=== PATIENT | male | born 1960 | race Caucasian/White ===

== ENCOUNTER 2018-03-24 20:48 | Emergency (ER) | payer OTHER, MEDICARE ==
[2018-03-24] MEDS ORDERED: LORAZEPAM 1 MG TABLET PO ONE (21:43)
[2018-03-24] MEDS ORDERED: LIDOCAINE 2% VISCOUS SOLN 20 ML UDCUP PO ONE (21:53)
[2018-03-24] MEDS ORDERED: METOCLOPRAMIDE HCL ORAL SOLN 10 MG/10 ML UDCUP PO ONE (21:53)
[2018-03-24] MEDS ORDERED: MAG HYDROX/AL HYDROX/SIMETH SUSP 30 ML UDCUP PO ONE (21:53)
--- NOTE | 2018-03-24 21:59 | ER Document Report ---
ED General - General Chief Complaint: Chest Pain Stated Complaint: CHEST PRESSURE Time Seen by Provider: 03/24/18 21:41 TRAVEL OUTSIDE OF THE [place].S. IN LAST 30 DAYS: No - HPI Notes: Patient is a 57-year-old male with a history of hypertension, AUSTYN, type 2 diabetes, chronic GI issues, acid reflux, and anxiety who presents to the ED complaining of feeling some chest tightness and burning 6 hours. Patient states that his symptoms started [place] Patient states that he has felt a little anxious as well today. He was told that he may have congestive heart failure in the past, but another doctor told that he did not have it. He has otherwise been eating and drinking without any difficulties. He has been urinating normally. Patient states that he did have a few episodes of diarrhea today without any hematochezia or melena. Denies any significant cardiopulmonary medical history otherwise. Denies any smoking or IV drug use. Denies any prolonged immobilization, leg pains, previous DVT/PE, recent surgery/trauma, hormone use. Denies any headache, fever, neck pain, URI, sore throat, palpitations, syncope , cough, shortness of breath, wheeze, dyspnea, abdominal pain, nausea/vomiting, urinary retention, dysuria, hematuria, loss of control of bowel or bladder, numbness/tingling, saddle anesthesia, muscle paralysis/weakness, or rash. - Related Data Allergies/Adverse Reactions: Penicillins Allergy (Mild, Verified 05/18/16 09:28) Hives Past Medical History - Social History Smoking Status: Never Smoker Chew tobacco use (# tins/day): No Frequency of alcohol use: Occasional Drug Abuse: None Family History: CAD - Father with CABG in his 70s, Malignancy Patient has suicidal ideation: No Patient has homicidal ideation: No - Past Medical History Cardiac Medical History: Reports: Hx Congestive Heart Failure, Hx Coronary Artery Disease - high chol , Hx Hypercholesterolemia, Hx Hypertension Denies: Hx Heart Attack Pulmonary Medical History: Reports: Hx Asthma Denies: Hx Bronchitis, Hx COPD, Hx Pneumonia Neurological Medical History: Denies: Hx Cerebrovascular Accident, Hx Seizures Endocrine Medical History: Reports: Hx Diabetes Mellitus Type 2 Renal/ Medical History: Reports: Hx Kidney Stones. Denies: Hx Peritoneal Dialysis GI Medical History: Reports: Hx Gastroesophageal Reflux Disease Musculoskeltal Medical History: Reports Hx Arthritis Psychiatric Medical History: Reports: Hx Depression Past Surgical History: Reports: Hx Tonsillectomy - Immunizations Hx Diphtheria, Pertussis, Tetanus Vaccination: - unknown Hx Pneumococcal Vaccination: 10/30/14 Review of Systems - Review of Systems -: Yes All other systems reviewed and negative Physical Exam - Vital signs Vitals: Temp Pulse BP Pulse Ox 98.6 F 56 L 118/72 94 03/24/18 21:17 03/24/18 21:17 03/24/18 21:17 03/24/18 21:17 - Notes Notes: PHYSICAL EXAMINATION: GENERAL: Well-appearing, well-nourished and in no acute distress. A&ox4. Answers questions appropriately. HEAD: Atraumatic, normocephalic. EYES: Pupils equal round and reactive to light, extraocular movements intact, sclera anicteric, conjunctiva are normal. ENT: nares patent and without discharge. oropharynx clear without exudates. No tonsilar hypertrophy or erythema. Moist mucous membranes. Chest: non-tender. no flail chest. NECK: Normal range of motion, supple without lymphadenopathy LUNGS: Breath sounds clear to auscultation bilaterally and equal. No wheezes rales or rhonchi. HEART: Regular rate and rhythm without murmurs, rubs, gallops. ABDOMEN: Soft, nontender, nondistended abdomen. No guarding, no rebound. No masses appreciated. Normal bowel sounds present. No CVA tenderness bilaterally. Musculoskeletal: FROM to passive/active. Strength 5+/5. Mily neg b/l. Extremities: No cyanosis, clubbing, or edema b/l. Peripheral pulses 2+. Capillary refill less than 3 seconds. NEUROLOGICAL: Normal speech, normal gait. Normal sensory, motor exams PSYCH: anxious mood, normal affect. SKIN: Warm, Dry, normal turgor, no rashes or lesions noted. Course - Re-evaluation Re-evalutation: 03/25/18 01:55 Patient is an afebrile, well-hydrated, 57-year-old male who presents to the ED with now resolved chest pain, suspect relation with his acid reflux and anxiety. Vitals are acceptable. PE is otherwise unremarkable. Patient has no significant tachycardia, tachypnea, or hypoxia. He is nontoxic-appearing. Patient was given a GI cocktail as well as ativan which completely resolved his symptoms. Patient states that he is feeling great. He is tolerating p.o. without any difficulties. CBC, CMP, BNP, cardiac enzymes 2/EKG, chest x-ray were unremarkable for any acute pathology. No other labs or imaging warranted at this time based on H&P. Patient is a heart score of 3. Wells 0. Based on symptomatology and work up as noted above I have a low suspicion for ACS, PE, pneumothorax, pericarditis, dissection, respiratory compromise, severe dehydration, sepsis, meningitis, or other systemic emergent condition at this time. Patient is aware that his condition can change from initial presentation and he needs to monitor symptoms closely and seek medical attention for any acute changes. Recommend conservative measures for symptoms. Recheck with your PCM in 3-5 days. Return to the ED with any worsening/concerning symptoms otherwise as reviewed in discharge. Patient is in agreement. - Vital Signs Vital signs: Temp Pulse Resp BP Pulse Ox 98.6 F 56 L 127/71 H 98 03/24/18 21:17 03/24/18 21:17 03/24/18 22:29 03/24/18 22:30 - Laboratory Result Diagrams: 03/24/18 22:29 03/24/18 22:29 Laboratory results interpreted by me: 03/24/18 03/24/18 22:29 22:29 WBC 14.3 H Seg Neutrophils % 83.4 H Lymphocytes % 11.2 L Absolute Neutrophils 12.0 H BUN 21 H Discharge - Discharge Clinical Impression: Anxiousness Chest pain, unspecified Qualifiers: Chest pain type: unspecified Qualified Code(s): R07.9 - Chest pain, unspecified Condition: Stable Disposition: HOME, SELF-CARE Instructions: Chest Pain of Unclear Cause ([facility]) Additional Instructions: Maintain adequate fluid and food intake Take home medications as directed Low sodium/fat diet Exercise regularly Weight control Monitor blood pressure daily and keep a log Monitor symptoms for any acute changes Recheck with your PCM in 3-5 days Consider a follow-up with cardiology Return to the ED with any worsening symptoms and/or development of fever, headache, chest pain, palpitations, syncope, shortness of breath, trouble breathing, abdominal pain, n/v/d, blood in stool/urine, loss of control of bowel /bladder, urinary retention, muscle weakness/paralysis, numbness/tingling, or other worsening symptoms that are concerning to you. Forms: Elevated Blood Pressure Referrals: KRYSTAL HICKS MD [ACTIVE STAFF] - Follow up as needed
--- NOTE | 2018-03-24 22:13 | RADIOLOGY REPORT (SQ) ---
EXAM DESCRIPTION: CHEST SINGLE VIEW COMPLETED DATE/TIME: 03/24/2018 10:05 pm REASON FOR STUDY: chest pain COMPARISON: 08/01/2015 EXAM PARAMETERS: NUMBER OF VIEWS: One view. TECHNIQUE: Single frontal radiographic view of the chest acquired. RADIATION DOSE: NA LIMITATIONS: None. FINDINGS: LUNGS AND PLEURA: No opacities, masses or pneumothorax. No pleural effusion. MEDIASTINUM AND HILAR STRUCTURES: No masses. Contour normal. HEART AND VASCULAR STRUCTURES: Heart stable in size. Normal vasculature. BONES: No acute findings. HARDWARE: None in the chest. OTHER: No other significant finding. IMPRESSION: NO ACUTE RADIOGRAPHIC FINDING IN THE CHEST. NO SIGNIFICANT CHANGE FROM PRIOR STUDY. TECHNICAL DOCUMENTATION: JOB ID: [id number] [employer]- All Rights Reserved Reading location - IP/workstation name: [email or web address]
[2018-03-24 22:41] LABS: ABSOLUTE EOSINOPHILS # (AUTO) 0.1 10^3/uL (0.0-0.6); ABSOLUTE LYMPHOCYTES (AUTO) 1.6 10^3/uL (0.5-4.7); ABSOLUTE MONOCYTES (AUTO) 0.6 10^3/uL (0.1-1.4); BASOPHILS % (AUTO) 0.2 % (0-2); EOSINOPHILS % (AUTO) 0.8 % (0-6); HEMATOCRIT 43.2 % (37.9-51.0); HEMOGLOBIN 14.7 g/dL (13.5-17.0); LYMPHOCYTES % (AUTO) 11.2 % (13-45); MEAN CORPUSCULAR HEMOGLOBIN 30.7 pg (27.0-33.4); MEAN CORPUSCULAR VOLUME 91 fl (80-97); MONOCYTES % (AUTO) 4.4 % (3-13); PLATELET COUNT 225 10^3/uL (150-450); RED BLOOD COUNT 4.78 10^6/uL (4.35-5.55); RED CELL DISTRIBUTION WIDTH 13.5 % (11.5-14.0); SEGMENTED NEUTROPHILS % (AUTO) 83.4 % (42-78); TOTAL CELLS COUNTED % (AUTO) 100 %; WHITE BLOOD COUNT 14.3 10^3/uL (4.0-10.5)
[2018-03-24 22:57] LABS: ALANINE AMINOTRANSFERASE 37 U/L (21-72); ALBUMIN 4.7 g/dL (3.5-5.0); ALKALINE PHOSPHATASE 98 U/L (38-126); ANION GAP 13 (5-19); ASPARTATE AMINO TRANSFERASE 21 U/L (17-59); BILIRUBIN,DIRECT 0.3 mg/dL (0.0-0.4); BILIRUBIN,TOTAL 0.4 mg/dL (0.2-1.3); BLOOD UREA NITROGEN 21 mg/dL (7-20); CALCIUM 9.9 mg/dL (8.4-10.2); CARBON DIOXIDE 27 mmol/L (22-30); CHLORIDE 99 mmol/L (98-107); CREATINE KINASE 55 U/L (55-170); GLUCOSE 87 mg/dL (75-110); POTASSIUM 4.4 mmol/L (3.6-5.0); SODIUM 139.3 mmol/L (137-145); TOTAL PROTEIN 7.3 g/dL (6.3-8.2)
[2018-03-24 23:09] LABS: CREATINE KINASE MB 1.05 ng/mL (<4.55); NT PRO BNP 49 pg/mL (5-900)
[2018-03-24 23:25] LABS: TROPONIN I < 0.012 ng/mL
[2018-03-25 02:35] VITALS: BP 138/97
--- NOTE | 2018-03-26 16:22 | EKG REPORT ---
SEVERITY:- BORDERLINE ECG - SINUS RHYTHM BORDERLINE INFERIOR Q WAVES : Confirmed by: Mykel Aguilar 26-Mar-2018 16:21:27
== END 2018-03-25 02:18 | disposition home or self-care (01) ==
LOC: ER 20:48
DX: R07.9 Chest pain, unspecified (principal); F41.1 Generalized anxiety disorder; E11.9 Type 2 diabetes mellitus without complications; I50.9 Heart failure, unspecified; E78.00 Pure hypercholesterolemia, unspecified; I11.0 Hypertensive heart disease with heart failure; Z88.0 Allergy status to penicillin; Z87.442 Personal history of urinary calculi
CPT/HCPCS: 93005; 99285; 36415; 82553; 82550; 85025; 80053; 84484; 83880; 71045; 93010; J3490

== ENCOUNTER 2020-07-02 08:39 | Day surgery (SDC) | payer OTHER, MEDICARE ==
[~2020-07-02 08:39] MED LIST: PROPOFOL INJ 200 MG/20 ML VIAL IV ONE
--- NOTE | 2020-07-02 11:13 | Operative Report ---
Operative Report DATE OF SURGERY: 07/02/20 Operative Report: The risk, benefits and alternatives of the procedure including the risk of bleeding, perforation requiring surgery have been explained to the patient in detail and informed consent has been obtained. The patient is placed in a left, lateral decubital position. Timeout was called. Propofol medication is administered. A rectal examination is done which did not reveal any masses, tears or fissures. An Olympus videoscope was introduced into the patient's rectum. Scope was then carefully advanced all the way to the cecum. Cecum was identified by the usual anatomical landmarks including the ileocecal valve as well as the appendiceal office. Photodocumentation is obtained. Scope was then sequentially pulled back via the various segments of the colon including the ascending colon, hepatic flexure, transverse colon, splenic flexure, descending colon and finally into the rectosigmoid portions of the colon. Retroflexion maneuvers performed. The risks benefits and alternatives of the procedure explained to the patient in detail and informed consent is obtained.A GIF Olympus video scope was inserted into the patient's mouth and hypopharynx, the esophagus is identified intubated and insufflated ,the scope was then advanced through the esophagus stomach and duodenum, retroflexion maneuver is done, the esophagus stomach and first and second portions of the duodenum examined PREOPERATIVE DIAGNOSIS: Epigastric pain rule out peptic ulcer disease. Change of bowel habits POSTOPERATIVE DIAGNOSIS: Diverticulosis noted in the sigmoid area without any evidence of diverticulitis. Colon polyp noted on the right-hand side of the colon status post removal with biopsy forceps. Gastritis status post biopsy. Duodenitis with small duodenal ulcers explaining the patient's abdominal pain OPERATION: Colonoscopy with biopsy. EGD with biopsy SURGEON: SINAI GONZALEZ ANESTHESIA: LMAC TISSUE REMOVED OR ALTERED: As noted above. COMPLICATIONS: None. ESTIMATED BLOOD LOSS: None. INTRAOPERATIVE FINDINGS: As noted above. PROCEDURE: Patient tolerated the procedure well. No immediate postprocedure complications are noted. Patient is discharged in good condition. Discharge date 07/02/2020. Discharge diet: Regular. Discharge activity: Regular. 2 to 3-week follow-up to discuss findings. Patient is instructed to call the office or proceed to the emergency room should there be any further problems or questions. Wait on the pathology. Surveillance colonoscopy in 5 years
[2020-07-02 14:10] VITALS: BP 126/76
== END 2020-07-02 11:45 | disposition home or self-care (01) ==
LOC: END 08:39
PROVIDERS: ATTEND Internal Medicine Gastroenterology
DX: D12.6 Benign neoplasm of colon, unspecified (principal); K57.30 Diverticulosis of large intestine without perforation or abscess without bleeding; K29.50 Unspecified chronic gastritis without bleeding; K29.80 Duodenitis without bleeding; I10 Essential (primary) hypertension; E11.9 Type 2 diabetes mellitus without complications; G47.33 Obstructive sleep apnea (adult) (pediatric); E66.9 Obesity, unspecified; Z79.899 Other long term (current) drug therapy; Z79.84 Long term (current) use of oral hypoglycemic drugs; Z03.818 Encounter for observation for suspected exposure to other biological agents ruled out
CPT/HCPCS: 43239; 45380; 82962; 87635; 88305 ×2; 00813; J2704; C9803; 813

== ENCOUNTER 2020-09-20 16:27 | Inpatient (IN) | payer OTHER, MEDICARE ==
--- NOTE | 2020-09-20 16:39 | ER Document Report ---
ED Medical Screen (RME) - General Chief Complaint: Chest Pain Stated Complaint: CHEST PAIN Time Seen by Provider: 09/20/20 16:32 Mode of Arrival: Wheelchair Information source: Patient Notes: 59-year-old male presented to ED for chest pain shortness of breath difficulty taking a deep breath states is hard for him to talk but he talked nonstop from the time out into the triage room till he was still talking when he left. He states he went to the pain clinic this morning at 11:00 they told him his blood pressure was 70 over something that he needed to go right to the emergency room. He states they then told him he could go to his primary care doctor. Went to [facility] and they talked about calling EMS but he said he was going to drive himself to the emergency room. They also let him drive away with a low blood pressure and pulse. Drainage came to air front entrance instead of the ER where he was sent to the emergency room. His blood pressure is 86/38 O2 sat was 95 pulse was 66. He states it is very hard to take a breath and very hard to talk. He states he just drove nonstop from [place] to here yesterday and has not slept all day. I have greeted and performed a rapid initial assessment of this patient. A comprehensive ED assessment and evaluation of the patient, analysis of test results and completion of medical decision making process will be conducted by an additional ED providers. TRAVEL OUTSIDE OF THE [place]. IN LAST 30 DAYS: No - Related Data Allergies/Adverse Reactions: Penicillins Allergy (Mild, Verified 05/18/16 09:28) Hives Past Medical History - Past Medical History Cardiac Medical History: Reports: Hx Congestive Heart Failure, Hx Coronary Artery Disease - high chol , Hx Hypercholesterolemia, Hx Hypertension Denies: Hx Heart Attack Pulmonary Medical History: Reports: Hx Asthma Denies: Hx Bronchitis, Hx COPD, Hx Pneumonia Neurological Medical History: Denies: Hx Cerebrovascular Accident, Hx Seizures Endocrine Medical History: Reports: Hx Diabetes Mellitus Type 2 Renal/ Medical History: Reports: Hx Kidney Stones. Denies: Hx Peritoneal Dialysis GI Medical History: Reports: Hx Gastroesophageal Reflux Disease Musculoskeltal Medical History: Reports Hx Arthritis Psychiatric Medical History: Reports: Hx Depression Past Surgical History: Reports: Hx Tonsillectomy - Immunizations Hx Diphtheria, Pertussis, Tetanus Vaccination: - unknown
[2020-09-20 17:01] LABS: ABSOLUTE BASOPHILS # (AUTO) 0.1 10^3/uL (0.0-0.2); ABSOLUTE EOSINOPHILS # (AUTO) 0.4 10^3/uL (0.0-0.6); ABSOLUTE LYMPHOCYTES (AUTO) 1.8 10^3/uL (0.5-4.7); ABSOLUTE MONOCYTES (AUTO) 0.8 10^3/uL (0.1-1.4); ABSOLUTE NEUT (AUTO) 11.6 10^3/uL (1.7-8.2); BASOPHILS % (AUTO) 0.6 % (0-2); EOSINOPHILS % (AUTO) 2.7 % (0-6); HEMOGLOBIN 13.8 g/dL (13.5-17.0); LYMPHOCYTES % (AUTO) 12.3 % (13-45); MEAN CORPUSCULAR HEMOGLOBIN 31.4 pg (27.0-33.4); MEAN CORPUSCULAR HGB CONC 34.6 g/dL (32.0-36.0); MEAN CORPUSCULAR VOLUME 91 fl (80-97); MONOCYTES % (AUTO) 5.4 % (3-13); PLATELET COUNT 192 10^3/uL (150-450); RED BLOOD COUNT 4.39 10^6/uL (4.35-5.55); RED CELL DISTRIBUTION WIDTH 13.1 % (11.5-14.0); TOTAL CELLS COUNTED % (AUTO) 100 %; WHITE BLOOD COUNT 14.7 10^3/uL (4.0-10.5)
[2020-09-20 17:07] LABS: INTERNATIONAL RATION (INR) 0.95; PROTHROMBIN TIME 12.9 SEC (11.4-15.4)
[2020-09-20 17:19] LABS: ALBUMIN 4.5 g/dL (3.5-5.0); ALKALINE PHOSPHATASE 92 U/L (38-126); ANION GAP 14 (5-19); ASPARTATE AMINO TRANSFERASE 36 U/L (17-59); BILIRUBIN,DIRECT 0.1 mg/dL (0.0-0.4); BILIRUBIN,TOTAL 0.4 mg/dL (0.2-1.3); BLOOD UREA NITROGEN 39 mg/dL (7-20); CALCIUM 9.5 mg/dL (8.4-10.2); CARBON DIOXIDE 23 mmol/L (22-30); CHLORIDE 99 mmol/L (98-107); CREATINE KINASE 552 U/L (55-170); GLUCOSE 107 mg/dL (75-110); POTASSIUM 5.7 mmol/L (3.6-5.0)
--- NOTE | 2020-09-20 17:28 | ER Document Report ---
ED General - General Chief Complaint: Chest Pain Stated Complaint: CHEST PAIN Time Seen by Provider: 09/20/20 16:32 Mode of Arrival: Wheelchair TRAVEL OUTSIDE OF THE [place].S. IN LAST 30 DAYS: No - HPI Notes: Patient is a 59-year-old male who presents to the emergency department for e valuation. He complains of a multitude of things. Evidently he was seen at his pain management today, he was found to be hypotensive. He complains to me that he woke up this morning and his legs felt very heavy. He also complained of some heavy chest pain. He also complained of left-sided neck pain. This did not seem to be related. He describes some associated shortness of breath and occasional palpitations. Some nausea. He really has a difficult time tying any of the symptoms together. He does admit that he drove yesterday from [place]. Initially his chest pain is sharp. Then he complains of a pressure type sensation. - Related Data Allergies/Adverse Reactions: Penicillins Allergy (Mild, Verified 09/20/20 18:41) Hives Past Medical History - General Information source: Patient - Social History Smoking Status: Unknown if Ever Smoked Family History: Reviewed & Not Pertinent, CAD - Father with CABG in his 70s, Ma lignancy - Past Medical History Cardiac Medical History: Reports: Hx Congestive Heart Failure, Hx Coronary Artery Disease - high chol , Hx Hypercholesterolemia, Hx Hypertension Denies: Hx Heart Attack Pulmonary Medical History: Reports: Hx Asthma Denies: Hx Bronchitis, Hx COPD, Hx Pneumonia Neurological Medical History: Denies: Hx Cerebrovascular Accident, Hx Seizures Endocrine Medical History: Reports: Hx Diabetes Mellitus Type 2 Renal/ Medical History: Reports: Hx Kidney Stones. Denies: Hx Peritoneal Dialysis GI Medical History: Reports: Hx Gastroesophageal Reflux Disease Musculoskeletal Medical History: Reports Hx Arthritis Psychiatric Medical History: Reports: Hx Depression Past Surgical History: Reports: Hx Tonsillectomy - Immunizations Hx Diphtheria, Pertussis, Tetanus Vaccination: - unknown Hx Pneumococcal Vaccination: 10/30/14 Review of Systems - Review of Systems Constitutional: See HPI EENT: No symptoms reported Cardiovascular: See HPI Respiratory: See HPI Gastrointestinal: See HPI Genitourinary: No symptoms reported Musculoskeletal: No symptoms reported Skin: No symptoms reported Neurological/Psychological: See HPI Physical Exam - Vital signs Vitals: Pulse Ox 100 09/20/20 16:37 - Notes Notes: Vital signs reviewed, please refer to chart. Head is normocephalic, atraumatic. Pupils equal round, reactive to light. Neck is supple without meningismus. Heart is regular rate and rhythm. Lungs are clear to auscultation bilaterally. Abdomen is soft, nontender, normoactive bowel sounds throughout. Extremities without cyanosis, clubbing. Posterior calves are nontender. Peripheral pulses are equal. Skin is warm and dry. Patient is awake, alert, neurological exam is nonfocal. Course - Re-evaluation Re-evalutation: 09/20/20 18:06 Patient presents to the emergency department for evaluation. He is a very vague historian. Initially he tells me he has chest pain and leg heaviness. He is just been traveling. I am worried about the possibility of a PE but also of an aortic dissection. CT scan was ordered, this was performed prior to patient's creatinine was obtained. I did have concerns that he was in a life-threatening situation given his hypotension. CTA failed to reveal anything acute. His laboratory investigations revealed acute kidney injury. Nursing was further discussing his presentation with this patient. The patient stated that he doubled his blood pressure medication yesterday. He also states he took an [id number] supplement to further lower his blood pressure. He cannot remember the last time he urinated. This certainly makes sense that his renal injury is prerenal and acute. He is given IV fluids. He is found to be hyperkalemic, I suspect this is again just secondary to his renal failure. I will give him fluids to dilute his potassium, as well as insulin and dextrose to shift him. He is not showing any significant concerning signs on his EKG. I have spoken to the internal medicine team, pending admission. - Vital Signs Vital signs: Temp Pulse Resp BP Pulse Ox 98.7 F 84 18 120/69 96 09/21/20 23:38 09/21/20 23:38 09/21/20 23:38 09/21/20 23:38 09/21/20 23:38 - Laboratory Result Diagrams: 09/21/20 04:27 09/21/20 11:28 Laboratory results interpreted by me: 09/20/20 09/20/20 16:43 16:43 WBC 14.7 H Lymph % (Auto) 12.3 L Absolute Neuts (auto) 11.6 H Seg Neutrophils % 79.0 H Sodium 135.9 L Potassium 5.7 H BUN 39 H Creatinine 2.85 H Est GFR ( Amer) 28 L Est GFR (MDRD) Non-Af 23 L Creatine Kinase 552 H - Diagnostic Test Radiology reviewed: Reports reviewed Radiology results interpreted by me: 09/20/20 18:07 Abdomen/Pelvis CTA 09/20/20 00:00 IMPRESSION: No evidence of aneurysm or dissection. No evidence of acute intrathoracic or intra-abdominal infectious/inflammatory process. Chest/Abdomen CTA 09/20/20 16:40 IMPRESSION: No evidence of aneurysm or dissection. No evidence of acute intrathoracic or intra-abdominal infectious/inflammatory process. - EKG Interpretation by Me Additional EKG results interpreted by me: 09/20/20 18:07 Sinus mechanism with a rate of 62 bpm. Normal axis and intervals. Nonspecific ST changes, but no acute changes concerning for ischemia or infarction. No significant change compared to prior study. Discharge - Discharge Clinical Impression: Acute kidney injury, Acute hyperkalemia Hypotension Qualifiers: Hypotension type: hypotension due to drug Qualified Code(s): I95.2 - Hypotension due to drugs Condition: Stable Disposition: ADMITTED INPATIENT Admitting Provider: Omar (Hospitalist) Unit Admitted: Telemetry
--- NOTE | 2020-09-20 17:39 | RADIOLOGY REPORT (SQ) ---
EXAM DESCRIPTION: CTA CHEST; CTA ABDOMEN/PELVIS W WO IMAGES COMPLETED DATE/TIME: 09/20/2020 5:21 pm REASON FOR STUDY: Short of breath, chest pain, POSS DISECTION; SOB, CP, POSS DISECTION COMPARISON: None. CONTRAST TYPE AND DOSE: contrast/concentration: Isovue 350.00 mmol/ml; Total Contrast Delivered: 91. 0 ml; Total Saline Delivered: 64.9 ml RENAL FUNCTION: 2 to the severity of the patient's condition, the evaluating physician elected to pr oceed with imaging prior to obtaining laboratory values. TECHNIQUE: CT scan of the chest performed using helical scanning technique with dynamic intravenous contrast injection. Images reviewed with lung, soft tissue and bone windows. Reconstructed coronal a nd sagittal MPR images reviewed. All images stored on PACS. CT scan of the abdomen and pelvis performed with intravenous and without oral contrastusing helical s pat technique with dynamic intravenous contrast injection. Images reviewed with lung, soft tissu e and bone windows. Reconstructed coronal and sagittal MPR images reviewed. Delayed images for eval uation of the urinary system also acquired and evaluated. All images stored on PACS. All CT scanners at this facility use dose modulation, iterative reconstruction, and/or weight based d osing when appropriate to reduce radiation dose to as low as reasonably achievable (ALARA). [facility]: Dose Right [facility]: CareDose [facility]: Dose Right [facility]: Teradose 4D [facility]: Smart [employer] RADIATION DOSE: CT Rad equipment meets quality standard of care and radiation dose reduction techniq ues were employed. CTDIvol: 21.1 - 34.0 mGy. DLP: 2373 mGy-cm. . LIMITATIONS: None. FINDINGS: CHEST: LUNGS AND PLEURA: No opacities, nodules, masses. No pneumothorax. No effusions. HILAR AND MEDIASTINAL STRUCTURES: No identified masses or abnormal nodes. HEART AND VASCULAR STRUCTURES: No aneurysm or dissection. No central or segmental pulmonary emboli. No pericardial effusion. HARDWARE: None. THYROID AND OTHER SOFT TISSUES: No masses. No adenopathy. BONES: No significant finding. OTHER: No other significant finding. ABDOMEN AND PELVIS: LIVER: Hepatic steatosis. Incidental note is made of a flash filling hemangioma. No suspicious mass es. No intrahepatic biliary dilatation. SPLEEN: Normal size. No focal lesions. PANCREAS: No masses. No significant calcifications. No adjacent inflammation or peripancreatic fluid collections. Pancreatic duct not dilated. GALLBLADDER: No identified stones by CT criteria. No inflammatory changes to suggest cholecystitis. ADRENAL GLANDS: No significant masses or asymmetry. RIGHT KIDNEY AND URETER: No solid masses. No significant calcification. No hydronephrosis or hydroure ter. LEFT KIDNEY AND URETER: No solid masses. No significant calcification. No hydronephrosis or hydrouret er. AORTA AND VESSELS: No aneurysm. No dissection. Renal arteries, SMA, celiac without stenosis. Inciden boo note is made of an accessory renal artery on the right RETROPERITONEUM: No retroperitoneal adenopathy, hemorrhage or masses. BOWEL AND PERITONEAL CAVITY: No masses or inflammatory changes. No free fluid or peritoneal masses. APPENDIX: Not visualized. ABDOMINAL WALL: No masses. No hernias. PELVIS: No mass or free fluid. Normal bladder. BONES: No significant or acute findings. OTHER: No other significant finding. IMPRESSION: No evidence of aneurysm or dissection. No evidence of acute intrathoracic or intra-abdominal infectious/inflammatory process. TECHNICAL DOCUMENTATION: JOB ID: [id number] Quality ID # [id number]: Final reports with documentation of one or more dose reduction techniques (e.g., Au tomated exposure control, adjustment of the mA and/or kV according to patient size, use of iterative reconstruction technique) 2010 [employer]- All Rights Reserved Reading location - IP/workstation name: [email or web address]
[2020-09-20] MEDS ORDERED: NORMAL SALINE 1000 ML 1,000 ML IV ONE ×3 (18:00→23:00)
[2020-09-20] MEDS ORDERED: DEXTROSE 50%-WATER 25 GM/50 ML DISP.SYRIN IV ONE (18:01)
[2020-09-20] MEDS ORDERED: INSULIN REG, HUMAN 100 UNIT/ML 3 ML VIAL (PYX) IV ONE (18:01)
[2020-09-20] MEDS ORDERED: GLUCAGON,HUMAN RECOMB 1 MG INJ IM PRN (18:48)
[2020-09-20] MEDS ORDERED: DEXTROSE 50%-WATER 25 GM/50 ML DISP.SYRIN IV PRN ×2 (18:48)
[2020-09-20] MEDS ORDERED: DEXTROSE 40% GEL 15 GM TUBE PO PRN ×2 (18:48)
--- NOTE | 2020-09-20 19:05 | PDOC H&P ---
History of Present Illness History of Present Illness: LYNNE MARISCAL is a 59 year old male with a history of hypertension, [id number] diabetes mellitus, anxiety, GERD, BPH, who presents with a story that is a little bit all over the place. He had been up in [place] visiting his father and had not been drinking very much water, mostly drinking Pepsi. He takes a lot of different medications and has not been taking them necessarily as prescribed. He is not a very good historian when it comes to his medications but he was able to name several that he does take, but he does not know the dosages. He said that he was taking Lasix but he stopped because he was getting up at night to pee a lot. He said he did not realize he was supposed to take it during the day, but he never started taking it back. He drove back yesterday from [place] and did not get very much sleep. He wound up doubling up on his blood pressure medication this morning as well as some sort of beet extract supplement which is supposed to help his blood pressure, because he was going to his doctor's visit this morning and wanted to have a good blood pressure when he went. However, he said he wound up feeling like his legs were very heavy and just not feeling good in general. He said does not remember the last time he urinated. He brought himself to the hospital to come to the ER but wound up coming in through the main entrance and wound up the subject of an overhead medical emergency call. He told them that he was having pressure in his chest. By the time they showed up to take him to the ER he said he was already feeling better. His blood pressure was a little bit low in the ER. They gave him some fluid. They wound up doing a CTA of his chest, abdomen, and pelvis, which was unremarkable. After this got done his labs came back and showed that he had an acute kidney injury with a creatinine of 2.8. We do not know what his baseline is. The last one we have on him here was from March 2018 and it was normal. He said he had also doubled up on his Metformin. He said he takes metoprolol and lisinopril and had doubled up on both of them. He said he thinks that he had only doubled up on them today and had not been doing that for the past few days. Past Medical History Cardiac Medical History: Reports: Congestive Heart Failure, Coronary Artery Disease - high chol , Hyperlipidema, Hypertension Denies: Myocardial Infarction Pulmonary Medical History: Reports: Asthma Denies: Bronchitis, Chronic Obstructive Pulmonary Disease (COPD), Pneumonia Neurological Medical History: Denies: Seizures Endocrine Medical History: Reports: Diabetes Mellitus Type 2 GI Medical History: Reports: Gastroesophageal Reflux Disease Musculoskeltal Medical History: Reports: Arthritis Psychiatric Medical History: Reports: Depression Hematology: Denies: Anemia Past Surgical History Past Surgical History: Reports: Tonsillectomy Social History Smoking Status: Never Smoker Frequency of Alcohol Use: Occasional Hx Recreational Drug Use: No Hx Prescription Drug Abuse: No Family History Family History: CAD - Father with CABG in his 70s, Malignancy Parental Family History Reviewed: Yes Children Family History Reviewed: Yes Sibling(s) Family History Reviewed.: Yes Medication/Allergy Home Medications: Simvastatin [Zocor 40 mg Tablet] 40 mg PO QHS #0 06/20/13 Albuterol Sulfate [Albuterol Sulfate Hfa] 1 puff PO ASDIR PRN 08/01/15 Furosemide 20 mg PO ASDIR PRN 08/01/15 Lisinopril 40 mg PO DAILY 08/01/15 Metformin HCl 500 mg PO DAILY 08/01/15 Methocarbamol 750 mg PO ASDIR PRN 08/01/15 Metoprolol Tartrate 25 mg PO DAILY 08/01/15 Tamsulosin HCl [Flomax] 0.4 mg PO DAILY 08/01/15 Aspirin 81 mg PO DAILY #30 pkg 08/03/15 Clonazepam [Klonopin] 0.5 mg PO DAILY 05/14/16 Pantoprazole Sodium 40 mg PO DAILY 05/14/16 Sertraline HCl 50 mg PO DAILY 05/14/16 Allergies/Adverse Reactions: Penicillins Allergy (Mild, Verified 09/20/20 18:41) Hives Review of Systems All systems: reviewed and no additional remarkable complaints except as stated - all systems were reviewed and were negative except as noted in the HPI Physical Exam Vital Signs: Temp Pulse Resp BP Pulse Ox 100 09/20/20 16:37 General appearance: PRESENT: no acute distress, cooperative, disheveled, morbidly obese Head exam: PRESENT: atraumatic, normocephalic Eye exam: PRESENT: EOMI, PERRLA. ABSENT: conjunctival injection, nystagmus, scleral icterus Ear exam: PRESENT: normal external ear exam Mouth exam: PRESENT: dry mucosa, neck supple Teeth exam: PRESENT: poor dentation Throat exam: ABSENT: post pharyngeal erythema Neck exam: PRESENT: full ROM. ABSENT: carotid bruit, JVD, lymphadenopathy, meningismus, tenderness, thyromegaly Respiratory exam: PRESENT: clear to auscultation keo, symmetrical, unlabored. ABSENT: accessory muscle use, chest wall tenderness, crackles, prolonged expiratory phas, rhonchi, tachypnea, wheezes Cardiovascular exam: PRESENT: RRR, +S1, +S2 Pulses: PRESENT: normal carotid pulses Vascular exam: PRESENT: normal capillary refill GI/Abdominal exam: PRESENT: normal bowel sounds, soft. ABSENT: distended, guarding, rebound, tenderness Extremities exam: ABSENT: clubbing, pedal edema Musculoskeletal exam: PRESENT: normal inspection. ABSENT: deformity Neurological exam: PRESENT: alert, awake, oriented to person, oriented to place, oriented to situation, CN II-XII grossly intact. ABSENT: motor sensory deficit Psychiatric exam: PRESENT: appropriate affect, normal mood Skin exam: PRESENT: dry, warm, other - His face was flushed Results Laboratory Results: 09/20/20 16:43 09/20/20 16:43 09/20/20 09/20/20 16:43 16:43 WBC 14.7 H RBC 4.39 Hgb 13.8 Hct 40.0 MCV 91 MCH 31.4 MCHC 34.6 RDW 13.1 Plt Count 192 Seg Neutrophils % 79.0 H Sodium 135.9 L Potassium 5.7 H Chloride 99 Carbon Dioxide 23 Anion Gap 14 BUN 39 H Creatinine 2.85 H Est GFR ( Amer) 28 L Glucose 107 Calcium 9.5 Magnesium 2.2 Total Bilirubin 0.4 AST 36 Alkaline Phosphatase 92 Total Protein 7.0 Albumin 4.5 09/20/20 09/20/20 16:43 16:43 Creatine Kinase 552 H Troponin I < 0.012 Impressions: Abdomen/Pelvis CTA 09/20/20 00:00 IMPRESSION: No evidence of aneurysm or dissection. No evidence of acute intrathoracic or intra-abdominal infectious/inflammatory process. Chest/Abdomen CTA 09/20/20 16:40 IMPRESSION: No evidence of aneurysm or dissection. No evidence of acute intrathoracic or intra-abdominal infectious/inflammatory process. 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 We have to assume that this is an acute injury at this point. It may be a combination of toxic effect of his medications combined with dehydration and then he doubled up on them, especially his Metformin and his lisinopril. His troponins and his EKG were negative. The way he described the pressure the second time was not so much tune his chest but sort of all around his torso. Not quite sure what to make of this. CTA of his chest abdomen and pelvis was normal. His potassium was little bit elevated most likely from hemoconcentration. We will give him some IV fluids. He is not very reliable some going to go ahead and trend his troponins as well. We will watch him on telemetry. We will repeat blood work in the morning to follow the trend in his creatinine. We will substitute an insulin sliding scale for his Metformin. He does not need his blood pressure medication at this time because his blood pressure is a little bit low. We should be able to continue his sertraline and his pravastatin. - Time Time Spent with patient: 35 or more minutes Anticipated Discharge Disposition: To be determined Anticipated Discharge Timeframe: To be determined - Inpatient Certification Based on my medical assessment, after consideration of the patient's comorbidities, presenting symptoms, or acuity I expect that the services needed warrant INPATIENT care.: Yes I certify that my determination is in accordance with my understanding of Medicare's requirements for reasonable and necessary INPATIENT services [42 CFR 412.3e].: Yes Medical Necessity: Significant Comorbidiites Make Outpatient Treatment Too Risky, Need Close Monitoring Due to Risk of Patient Decompensation, Need For Continuous Telemetry Monitoring, Risk of Complication if Not Cared For in Hospital
[2020-09-20] MEDS: NORMAL SALINE 1000 ML 1,000 ML IV PRN ×2 (19:15→23:30)
--- NOTE | 2020-09-20 22:08 | Progress Note ---
Provider Note Provider Note: Rapid response called upon patient's arrival on the fourth floor as patient was hypotensive and confused. On arrival at scene, patient was hypotensive in the 60s/40s. Heart rate was in the 80s. Spo2 was normal. BG was 130. He is alert and awake to person, place and time but does have some obvious confusion. He a nswers questions appropriately but tends to ramble on for long periods with tangential speech and mildly restless. Lung sounds clear bilaterally on auscultation and symmetric with no evidence of work of breathing/retractions. Heart auscultation reveals S1 and S2 which are regular rhythm and rate and no gallops. Pupils are about 2.5mm symmetric and bilateral. Patient does voice that he doubled down on his metoprolol and his other blood pressure medication which he cannot remember. Only two 1 pill of oxycodone earlier this morning. A/P Hypotension, Metabolic encephalopathy. We checked a manual blood pressure which was 80s/40s. 1L NS bolus given with mild improvement but still hypotensive. We will go ahead and bolus him with another 1 L normal saline now. I have asked nurse to place a second IV access. We will reassess his blood pressure and resume his continuous fluids subsequently. We did put him flat in bed. We will monitor his urine output as he has not made any urine so far. We will bladder scan and straight cath if we need to. 30mins Critical care times spent
[2020-09-20] MEDS: HEPARIN SOD (PORCINE) 5,000 UNIT/ML 1 ML VIAL SUBCUT SCH (23:31)
[2020-09-20] MEDS: INSULIN LISPRO 100 UNIT/ML 3 ML VIAL SUBCUT SCH (23:34)
[2020-09-21] MEDS ORDERED: NORMAL SALINE 1000 ML 500 ML IV ONE (00:55)
[2020-09-21 03:07] LABS: APPEARANCE,URINE SLIGHTLY-CLOUDY; BILIRUBIN,URINE NEGATIVE (NEGATIVE); COLOR,URINE YELLOW; GLUCOSE, URINE NEGATIVE (NEGATIVE); KETONES,URINE NEGATIVE (NEGATIVE); LEUKOCYTE ESTERASE,URINE NEGATIVE (NEGATIVE); NITRITE,URINE NEGATIVE (NEGATIVE); PROTEIN,URINE 30 mg/dL (NEGATIVE); URINE SPECIFIC GRAVITY 1.035
[2020-09-21 03:22] LABS: URINE AMPHETAMINES SCREEN NEGATIVE; URINE BARBITURATES SCREEN NEGATIVE; URINE BENZODIAZEPINES SCREEN NEGATIVE; URINE COCAINE SCREEN NEGATIVE; URINE MARIJUANA (THC) SCREEN NEGATIVE; URINE METHADONE SCREEN NEGATIVE; URINE PHENCYCLIDINE SCREEN NEGATIVE
[2020-09-21 04:49] LABS: HEMATOCRIT 33.8 % (37.9-51.0); MEAN CORPUSCULAR HGB CONC 33.8 g/dL (32.0-36.0); MEAN CORPUSCULAR VOLUME 92 fl (80-97); PLATELET COUNT 137 10^3/uL (150-450); RED BLOOD COUNT 3.68 10^6/uL (4.35-5.55); RED CELL DISTRIBUTION WIDTH 13.5 % (11.5-14.0)
[2020-09-21] MEDS: NORMAL SALINE 1000 ML 1,000 ML IV PRN ×2 (04:56→17:00)
[2020-09-21 04:59] LABS: ANION GAP 9 (5-19); BLOOD UREA NITROGEN 49 mg/dL (7-20); CALCIUM 7.6 mg/dL (8.4-10.2); CARBON DIOXIDE 19 mmol/L (22-30); CHLORIDE 104 mmol/L (98-107); GLUCOSE 143 mg/dL (75-110); HEMOGLOBIN 11.4 g/dL (13.5-17.0)
[2020-09-21 05:02] LABS: POTASSIUM 6.1 mmol/L (3.6-5.0)
[2020-09-21] MEDS ORDERED: DEXTROSE 50%-WATER 25 GM/50 ML DISP.SYRIN IV ONE (05:15)
[2020-09-21] MEDS ORDERED: INSULIN REG, HUMAN 100 UNIT/ML 3 ML VIAL (PYX) IV ONE (05:19)
[2020-09-21] MEDS: HEPARIN SOD (PORCINE) 5,000 UNIT/ML 1 ML VIAL SUBCUT SCH (05:37)
--- NOTE | 2020-09-21 09:13 | EKG REPORT ---
SEVERITY:- BORDERLINE ECG - SINUS RHYTHM BORDERLINE INFERIOR Q WAVES BORDERLINE ST DEPRESSION, ANTERIOR LEADS : Confirmed by: Mykel Aguilar 21-Sep-2020 09:12:49
--- NOTE | 2020-09-21 09:14 | EKG REPORT ---
SEVERITY:- BORDERLINE ECG - SINUS RHYTHM BORDERLINE INFERIOR Q WAVES : Confirmed by: Mykel Aguilar 21-Sep-2020 09:12:54
[2020-09-21] MEDS: INSULIN LISPRO 100 UNIT/ML 3 ML VIAL SUBCUT SCH ×4 (09:18→21:39)
[2020-09-21] MEDS ORDERED: HYDROXYZINE HCL 10 MG TABLET PO PRN (12:13)
[2020-09-21] MEDS: PANTOPRAZOLE SODIUM 40 MG VIAL IV SCH ×2 (14:45→21:39)
--- NOTE | 2020-09-21 18:00 | PDOC PROGRESS REPORT ---
Subjective Date:: 09/21/20 Subjective:: He had a few episodes of stools with blood in them last night. His hemoglobin i s down but it is more likely that it is down from the copious amounts of IV fluids he has received. I dug through his chart and found that he had an endoscopy with Dr. Martínez a couple of months ago, and was noted to have diverticuli of the sigmoid colon, and was also noted to have gastritis along wi th some small duodenal ulcers. He was supposed to have started on Protonix but he said he never got it because the [facility] would not [facility] it. Reason For Visit: ACUTE KIDNEY INJURY,HYPOTENSION,ACUTE HYPERKALEMIA Physical Exam Vital Signs: Temp Pulse Resp BP Pulse Ox 98.6 F 89 16 114/61 96 09/21/20 16:43 09/21/20 16:43 09/21/20 16:43 09/21/20 16:43 09/21/20 16:43 Intake & Output 09/20/20 09/21/20 09/22/20 06:59 06:59 06:59 Intake Total 5969 1240 Output Total 720 300 Balance 5249 940 Weight 107.9 kg General appearance: PRESENT: no acute distress, cooperative, disheveled, morbidly obese Respiratory exam: PRESENT: clear to auscultation keo, symmetrical, unlabored. ABSENT: accessory muscle use, chest wall tenderness, crackles, prolonged expiratory phas, rhonchi, tachypnea, wheezes Cardiovascular exam: PRESENT: RRR, +S1, +S2 Pulses: PRESENT: normal carotid pulses Vascular exam: PRESENT: normal capillary refill GI/Abdominal exam: PRESENT: normal bowel sounds, soft, other - Pendulous abdominal pannus. ABSENT: distended, guarding, rebound, tenderness Rectal exam: PRESENT: bloody stool Extremities exam: ABSENT: clubbing, pedal edema Musculoskeletal exam: PRESENT: normal inspection. ABSENT: deformity Neurological exam: PRESENT: alert, awake, oriented to person, oriented to place, oriented to situation Psychiatric exam: PRESENT: appropriate affect, normal mood Skin exam: PRESENT: dry, warm Results Laboratory Results: 09/21/20 04:27 09/21/20 11:28 09/21/20 09/21/20 09/21/20 02:30 04:27 04:27 WBC 17.0 H RBC 3.68 L Hgb 11.4 L D Hct 33.8 L MCV 92 MCH 31.0 MCHC 33.8 RDW 13.5 Plt Count 137 L Sodium 132.4 L Potassium 6.1 H* Chloride 104 Carbon Dioxide 19 L Anion Gap 9 BUN 49 H Creatinine 2.61 H Est GFR ( Amer) 31 L Glucose 143 H Calcium 7.6 L Urine Color YELLOW Urine Appearance SLIGHTLY-CLOUDY Urine pH 5.0 Ur Specific [place] 1.035 Urine Protein 30 H Urine Glucose (UA) NEGATIVE Urine Ketones NEGATIVE Urine Blood NEGATIVE Urine Nitrite NEGATIVE Ur Leukocyte Esterase NEGATIVE Urine WBC (Auto) 3 Urine RBC (Auto) 2 09/21/20 11:28 WBC RBC Hgb Hct MCV MCH MCHC RDW Plt Count Sodium Potassium 4.8 D Chloride Carbon Dioxide Anion Gap BUN Creatinine Est GFR ( Amer) Glucose Calcium Urine Color Urine Appearance Urine pH Ur Specific [place] Urine Protein Urine Glucose (UA) Urine Ketones Urine Blood Urine Nitrite Ur Leukocyte Esterase Urine WBC (Auto) Urine RBC (Auto) 09/20/20 09/20/20 09/20/20 16:43 16:43 22:54 Creatine Kinase 552 H Troponin I < 0.012 < 0.012 09/21/20 09/21/20 04:27 11:28 Creatine Kinase Troponin I < 0.012 < 0.012 Impressions: Abdomen/Pelvis CTA 09/20/20 00:00 IMPRESSION: No evidence of aneurysm or dissection. No evidence of acute intrathoracic or intra-abdominal infectious/inflammatory process. Chest/Abdomen CTA 09/20/20 16:40 IMPRESSION: No evidence of aneurysm or dissection. No evidence of acute intrathoracic or intra-abdominal infectious/inflammatory process. 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 His urine output is improving and his creatinine is trending down. His potassium was elevated again this morning but got shifted and is now within normal range. We will continue to monitor this. Blood pressures have improved. We will continue to hold his blood pressure medications for now in light of his renal failure. I have started Protonix IV twice a day. Heparin has been discontinued. We will make sure that we can get him on some sort of proton pump inhibitor whenever he leaves the hospital. Because of his recent colonoscopy and an identified source of bleeding there, I do not think he needs repeat endoscopic evaluation at this time. - Time Time Spent with patient: 25-34 minutes Anticipated Discharge Disposition: Undetermined Anticipated Discharge Timeframe: Undetermined
[2020-09-21] MEDS: SIMVASTATIN 40 MG TABLET PO SCH (21:39)
--- NOTE | 2020-09-22 00:01 | EKG REPORT ---
SEVERITY:- NORMAL ECG - SINUS RHYTHM : Confirmed by: Mykel Aguilar 21-Sep-2020 23:59:47
[2020-09-22] MEDS: NORMAL SALINE 1000 ML 1,000 ML IV PRN (01:34)
[2020-09-22 06:21] LABS: ANION GAP 7 (5-19); BLOOD UREA NITROGEN 23 mg/dL (7-20); CALCIUM 8.7 mg/dL (8.4-10.2); CARBON DIOXIDE 24 mmol/L (22-30); CHLORIDE 109 mmol/L (98-107); GLUCOSE 136 mg/dL (75-110); POTASSIUM 4.7 mmol/L (3.6-5.0)
[2020-09-22 06:51] LABS: HEMATOCRIT 34.7 % (37.9-51.0); HEMOGLOBIN 11.8 g/dL (13.5-17.0); MEAN CORPUSCULAR HEMOGLOBIN 31.3 pg (27.0-33.4); MEAN CORPUSCULAR HGB CONC 34.1 g/dL (32.0-36.0); MEAN CORPUSCULAR VOLUME 92 fl (80-97); PLATELET COUNT 117 10^3/uL (150-450); RED BLOOD COUNT 3.79 10^6/uL (4.35-5.55); RED CELL DISTRIBUTION WIDTH 13.6 % (11.5-14.0); WHITE BLOOD COUNT 10.6 10^3/uL (4.0-10.5)
[2020-09-22] MEDS: INSULIN LISPRO 100 UNIT/ML 3 ML VIAL SUBCUT SCH ×4 (07:54→21:28)
[2020-09-22] MEDS: PANTOPRAZOLE SODIUM 40 MG VIAL IV SCH ×2 (09:21→21:32)
[2020-09-22] MEDS: SERTRALINE HCL 50 MG TABLET PO SCH (09:21)
[2020-09-22] MEDS ORDERED: TAMSULOSIN HCL 0.4 MG CAP.SR.24H PO SCH (10:00)
[2020-09-22] MEDS ORDERED: PANTOPRAZOLE SODIUM 40 MG TABLET.DR PO SCH (10:00)
--- NOTE | 2020-09-22 19:32 | PDOC PROGRESS REPORT ---
Subjective Date:: 09/22/20 Subjective:: No adverse events overnight. No new complaints. Vital signs been stable. Eati ng and drinking without difficulty. He started on Protonix and has not had any more episodes of bleeding. Urine output has been excellent. He said he feels a lot better. Reason For Visit: ACUTE KIDNEY INJURY,HYPOTENSION,ACUTE HYPERKALEMIA Physical Exam Vital Signs: Temp Pulse Resp BP Pulse Ox 98.2 F 88 18 133/83 H 97 09/22/20 12:00 09/22/20 14:00 09/22/20 12:00 09/22/20 12:00 09/22/20 12:00 Intake & Output 09/21/20 09/22/20 09/23/20 06:59 06:59 06:59 Intake Total 5969 4396 1250 Output Total 720 2130 800 Balance 5249 2266 450 Weight 107.9 kg 106.3 kg General appearance: PRESENT: no acute distress, cooperative, disheveled, morbidl y obese Respiratory exam: PRESENT: clear to auscultation keo, symmetrical, unlabored. ABSENT: accessory muscle use, chest wall tenderness, crackles, prolonged expiratory phas, rhonchi, tachypnea, wheezes Cardiovascular exam: PRESENT: RRR, +S1, +S2 Pulses: PRESENT: normal carotid pulses Vascular exam: PRESENT: normal capillary refill GI/Abdominal exam: PRESENT: normal bowel sounds, soft, other - Pendulous abdominal pannus. ABSENT: distended, guarding, rebound, tenderness Rectal exam: PRESENT: bloody stool Extremities exam: ABSENT: clubbing, pedal edema Musculoskeletal exam: PRESENT: normal inspection. ABSENT: deformity Neurological exam: PRESENT: alert, awake, oriented to person, oriented to place, oriented to situation Psychiatric exam: PRESENT: appropriate affect, normal mood Skin exam: PRESENT: dry, warm Results Laboratory Results: 09/22/20 05:10 09/22/20 05:10 09/22/20 09/22/20 05:10 05:10 WBC 10.6 H RBC 3.79 L Hgb 11.8 L Hct 34.7 L MCV 92 MCH 31.3 MCHC 34.1 RDW 13.6 Plt Count 117 L Sodium 139.5 Potassium 4.7 Chloride 109 H Carbon Dioxide 24 Anion Gap 7 BUN 23 H Creatinine 1.05 Est GFR ( Amer) > 60 Glucose 136 H Calcium 8.7 09/20/20 09/20/20 09/20/20 16:43 16:43 22:54 Creatine Kinase 552 H Troponin I < 0.012 < 0.012 09/21/20 09/21/20 04:27 11:28 Creatine Kinase Troponin I < 0.012 < 0.012 Impressions: Abdomen/Pelvis CTA 09/20/20 00:00 IMPRESSION: No evidence of aneurysm or dissection. No evidence of acute intrathoracic or intra-abdominal infectious/inflammatory process. Chest/Abdomen CTA 09/20/20 16:40 IMPRESSION: No evidence of aneurysm or dissection. No evidence of acute intrathoracic or intra-abdominal infectious/inflammatory process. 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 Stopping IV fluids. Hyperkalemia has resolved. Proton pump inhibitor for gastritis and duodenitis with shallow duodenal ulcers seen on his last EGD. If he is stable tomorrow morning he can be discharged home. - Time Time Spent with patient: 15-24 minutes Anticipated Discharge Disposition: Home, Self Care Anticipated Discharge Timeframe: within 24 hours
[2020-09-22] MEDS: SIMVASTATIN 40 MG TABLET PO SCH (21:32)
[2020-09-23 05:45] LABS: HEMATOCRIT 39.2 % (37.9-51.0); HEMOGLOBIN 13.2 g/dL (13.5-17.0); MEAN CORPUSCULAR HEMOGLOBIN 31.3 pg (27.0-33.4); MEAN CORPUSCULAR HGB CONC 33.8 g/dL (32.0-36.0); MEAN CORPUSCULAR VOLUME 93 fl (80-97); PLATELET COUNT 146 10^3/uL (150-450); RED BLOOD COUNT 4.23 10^6/uL (4.35-5.55); RED CELL DISTRIBUTION WIDTH 13.8 % (11.5-14.0); WHITE BLOOD COUNT 8.3 10^3/uL (4.0-10.5)
[2020-09-23 06:01] LABS: ANION GAP 10 (5-19); BLOOD UREA NITROGEN 18 mg/dL (7-20); CALCIUM 9.7 mg/dL (8.4-10.2); CARBON DIOXIDE 25 mmol/L (22-30); CHLORIDE 105 mmol/L (98-107); GLUCOSE 109 mg/dL (75-110); POTASSIUM 4.3 mmol/L (3.6-5.0)
[2020-09-23] MEDS: INSULIN LISPRO 100 UNIT/ML 3 ML VIAL SUBCUT SCH ×4 (07:34→16:56)
[2020-09-23] MEDS: PANTOPRAZOLE SODIUM 40 MG VIAL IV SCH (09:14)
[2020-09-23] MEDS: SERTRALINE HCL 50 MG TABLET PO SCH (09:15)
[2020-09-23 14:02] VITALS: BP 133/83
--- NOTE | 2020-09-23 17:02 | PDOC DISCHARGE SUMMARY ---
Impression - Admit/DC Date/PCP Admission Date/Primary Care Provider: 09/20/20 19:[facility] Discharge Date: 09/23/20 - Discharge Diagnosis (1) Acute hyperkalemia Is this a current diagnosis for this admission?: Yes (2) Acute kidney injury Is this a current diagnosis for this admission?: Yes (3) Hypotension Is this a current diagnosis for this admission?: Yes (4) Diabetes mellitus Is this a current diagnosis for this admission?: Yes (5) Hypercholesteremia Is this a current diagnosis for this admission?: Yes (6) Hematochezia Is this a current diagnosis for this admission?: Yes (7) Gastritis and gastroduodenitis with hemorrhage Is this a current diagnosis for this admission?: Yes - Assessment Summary: Acute kidney injury has resolved. Stopping IV fluids. Hyperkalemia has resolved. Proton pump inhibitor for gastritis and duodenitis with shallow duodenal ulcers seen on his last EGD. If he is stable tomorrow morning he can be discharged home. - Additional Information Discharge Diet: Cardiac, Diabetic Discharge Activity: Activity As Tolerated Referrals: [facility] [Primary Care Provider] - 09/23/20 3:05 pm ([facility] WILL CONTACT THE PATIENT WITH FOLLOW UP APPT) Prescriptions: Pantoprazole Sodium 40 mg PO BID #60 tablet. Home Medications: Simvastatin [Zocor 40 mg Tablet] 20 mg PO QHS #0 06/20/13 Furosemide 20 mg PO DAILY 08/01/15 Lisinopril 40 mg PO DAILY 08/01/15 Metformin HCl 1,000 mg PO BID 08/01/15 Tamsulosin HCl [Flomax] 0.4 mg PO DAILY 08/01/15 Aspirin 81 mg PO DAILY #30 pkg 08/03/15 Sertraline HCl 100 mg PO QAM 05/14/16 Hydroxyzine HCl [Atarax 10 mg Tablet] 25 mg PO DAILYP PRN 09/21/20 Loratadine [Claritin 10 mg Tablet] 10 mg PO DAILY 09/21/20 Oxycodone HCl [Oxy-Ir 5 mg Tablet] 5 mg PO QIDP PRN 09/21/20 Albuterol Sulfate [Proair HFA Inhalation Aerosol 8.5 gm MDI] 2 puff IH Q6HP PRN 09/22/20 Gabapentin [Neurontin] 600 mg PO Q8 09/22/20 Pantoprazole Sodium 40 mg PO BID #60 tablet. 09/23/20 History of Present Illiness History of Present Illness: LYNNE MARISCAL is a 59 year old male with a history of hypertension, [id number] diabetes mellitus, anxiety, GERD, BPH, who presents with a story that is a little bit all over the place. He had been up in [place] visiting his father and had not been drinking very much water, mostly drinking Pepsi. He takes a lot of different medications and has not been taking them necessarily as prescribed. He is not a very good historian when it comes to his medications but he was able to name several that he does take, but he does not know the dosages. He said that he was taking Lasix but he stopped because he was getting up at night to pee a lot. He said he did not realize he was supposed to take it during the day, but he never started taking it back. He drove back yesterday from [place] and did not get very much sleep. He wound up doubling up on his blood pressure medication this morning as well as some sort of beet extract supplement which is supposed to help his blood pressure, because he was going to his doctor's visit this morning and wanted to have a good blood pressure when he went. However, he said he wound up feeling like his legs were very heavy and just not feeling good in general. He said does not remember the last time he urinated. He brought himself to the hospital to come to the ER but wound up coming in through the main entrance and wound up the subject of an overhead medical emergency call. He told them that he was having pressure in his chest. By the time they showed up to take him to the ER he said he was already feeling better. His blood pressure was a little bit low in the ER. They gave him some fluid. They wound up doing a CTA of his chest, abdomen, and pelvis, which was unremarkable. After this got done his labs came back and showed that he had an acute kidney injury with a creatinine of 2.8. We do not know what his baseline is. The last one we have on him here was from March 2018 and it was normal. He said he had also doubled up on his Metformin. He said he takes metoprolol and lisinopril and had doubled up on both of them. He said he thinks that he had only doubled up on them today and had not been doing that for the past few days. Hospital Course Hospital Course: See it would appear that lack of adequate water intake for a period of several days combined with a high intake of Pepsi plus doubling up on multiple of his medications to help with his blood pressure his blood sugar before he went to see his doctor for a checkup all contributed to a metabolic cocktail that wound up putting him into renal failure. Fortunately, he responded well to IV fluids and after a few days of treatment his creatinine returned to normal. While he was here, he developed some bright red blood per rectum. His heparin was discontinued. He was started on a Protonix drip. After looking through his chart, we found out that couple of months ago he had an endoscopy and a colonoscopy that showed diverticulosis, gastritis, and duodenitis with shallow duodenal ulcers. He was supposed to have started on Dexilant but was not able to [facility]. Therefore, he had not been on any treatment for these gastrointestinal issues for couple of months. We switched his PPI over to twice a day through the IV. Bleeding stopped abruptly. Because it started and stopped so abruptly could have been a diverticular bleed. However, he still needs the treatment for his gastritis and duodenitis and duodenal ulcers. We tried to find out which medication the [facility] would [facility], but their office never called us back. Patient agreed to a local commercial pharmacy and obtain a prescription that we sent for Protonix twice a day for 3 months. He has follow-up arranged with the [facility] within a week and so if they want him to be on something different they can switch him at that time. His labs and examination were reassuring and he was discharged in stable condition. Physical Exam Vital Signs: Temp Pulse Resp BP Pulse Ox 98.0 F 68 16 133/83 H 97 09/23/20 14:00 09/23/20 14:00 09/23/20 14:00 09/23/20 14:00 09/23/20 14:00 Intake & Output 09/22/20 09/23/20 09/24/20 06:59 06:59 06:59 Intake Total 4396 1250 500 Output Total 2130 800 Balance 2266 450 500 Weight 106.3 kg 102.9 kg General appearance: PRESENT: no acute distress, cooperative, disheveled, morbidly obese Respiratory exam: PRESENT: clear to auscultation keo, symmetrical, unlabored. ABSENT: accessory muscle use, chest wall tenderness, crackles, prolonged expiratory phas, rhonchi, tachypnea, wheezes Cardiovascular exam: PRESENT: RRR, +S1, +S2 Pulses: PRESENT: normal carotid pulses Vascular exam: PRESENT: normal capillary refill GI/Abdominal exam: PRESENT: normal bowel sounds, soft, other - Pendulous abdominal pannus. ABSENT: distended, guarding, rebound, tenderness Rectal exam: PRESENT: bloody stool Extremities exam: ABSENT: clubbing, pedal edema Musculoskeletal exam: PRESENT: normal inspection. ABSENT: deformity Neurological exam: PRESENT: alert, awake, oriented to person, oriented to place, oriented to situation Psychiatric exam: PRESENT: appropriate affect, normal mood Skin exam: PRESENT: dry, warm Results Laboratory Results: WBC 8.3 10^3/uL (4.0-10.5) 09/23/20 04:58 RBC 4.23 10^6/uL (4.35-5.55) L 09/23/20 04:58 Hgb 13.2 g/dL (13.5-17.0) L 09/23/20 04:58 Hct 39.2 % (37.9-51.0) 09/23/20 04:58 MCV 93 fl (80-97) 09/23/20 04:58 MCH 31.3 pg (27.0-33.4) 09/23/20 04:58 MCHC 33.8 g/dL (32.0-36.0) 09/23/20 04:58 RDW 13.8 % (11.5-14.0) 09/23/20 04:58 Plt Count 146 10^3/uL (150-450) L 09/23/20 04:58 Lymph % (Auto) 12.3 % (13-45) L 09/20/20 16:43 [place] % (Auto) 5.4 % (3-13) 09/20/20 16:43 Eos % (Auto) 2.7 % (0-6) 09/20/20 16:43 Baso % (Auto) 0.6 % (0-2) 09/20/20 16:43 Absolute Neuts (auto) 11.6 10^3/uL (1.7-8.2) H 09/20/20 16:43 Absolute Lymphs (auto) 1.8 10^3/uL (0.5-4.7) 09/20/20 16:43 Absolute Monos (auto) 0.8 10^3/uL (0.1-1.4) 09/20/20 16:43 Absolute Eos (auto) 0.4 10^3/uL (0.0-0.6) 09/20/20 16:43 Absolute Basos (auto) 0.1 10^3/uL (0.0-0.2) 09/20/20 16:43 Seg Neutrophils % 79.0 % (42-78) H 09/20/20 16:43 PT 12.9 SEC (11.4-15.4) 09/20/20 16:43 INR 0.95 09/20/20 16:43 APTT 32.0 SEC (23.5-35.8) 09/20/20 16:43 Sodium 140.0 mmol/L (137-145) 09/23/20 04:58 Potassium 4.3 mmol/L (3.6-5.0) 09/23/20 04:58 Chloride 105 mmol/L (98-107) 09/23/20 04:58 Carbon Dioxide 25 mmol/L (22-30) 09/23/20 04:58 Anion Gap 10 (5-19) 09/23/20 04:58 BUN 18 mg/dL (7-20) 09/23/20 04:58 Creatinine 0.89 mg/dL (0.52-1.25) 09/23/20 04:58 Est GFR ( Amer) > 60 (>60) 09/23/20 04:58 Est GFR (MDRD) Non-Af > 60 (>60) 09/23/20 04:58 Glucose 109 mg/dL (75-110) 09/23/20 04:58 POC Glucose 101 mg/dL (70-110) 09/23/20 16:22 Calcium 9.7 mg/dL (8.4-10.2) 09/23/20 04:58 Magnesium 2.2 mg/dL (1.6-2.3) 09/20/20 16:43 Total Bilirubin 0.4 mg/dL (0.2-1.3) 09/20/20 16:43 Direct Bilirubin 0.1 mg/dL (0.0-0.4) 09/20/20 16:43 Neonat Total Bilirubin Not Reportable 09/20/20 16:43 Neonat Direct Bilirubin Not Reportable 09/20/20 16:43 Neonat Indirect Bili Not Reportable 09/20/20 16:43 AST 36 U/L (17-59) 09/20/20 16:43 ALT 28 U/L (<50) 09/20/20 16:43 Alkaline Phosphatase 92 U/L (38-126) 09/20/20 16:43 Creatine Kinase 552 U/L (55-170) H 09/20/20 16:43 Troponin I < 0.012 ng/mL 09/21/20 11: Total Protein 7.0 g/dL (6.3-8.2) 09/20/20 16:43 Albumin 4.5 g/dL (3.5-5.0) 09/20/20 16:43 Urine Color YELLOW 09/21/20 02:30 Urine Appearance SLIGHTLY-CLOUDY 09/21/20 02:30 Urine pH 5.0 (5.0-9.0) 09/21/20 02:30 Ur Specific [place] 1.035 09/21/20 02:30 Urine Protein 30 mg/dL (NEGATIVE) H 09/21/20 02:30 Urine Glucose (UA) NEGATIVE mg/dL (NEGATIVE) 09/21/20 02:30 Urine Ketones NEGATIVE mg/dL (NEGATIVE) 09/21/20 02:30 Urine Blood NEGATIVE (NEGATIVE) 09/21/20 02:30 Urine Nitrite NEGATIVE (NEGATIVE) 09/21/20 02:30 Urine Bilirubin NEGATIVE (NEGATIVE) 09/21/20 02:30 Urine Urobilinogen 2.0 mg/dL (<2.0) H 09/21/20 02:30 Ur Leukocyte Esterase NEGATIVE (NEGATIVE) 09/21/20 02:30 Urine WBC (Auto) 3 /HPF 09/21/20 02:30 Urine RBC (Auto) 2 /HPF 09/21/20 02:30 Urine Bacteria (Auto) TRACE /HPF 09/21/20 02:30 Squamous Epi Cells Auto <1 /HPF 09/21/20 02:30 Urine Mucus (Auto) RARE /LPF 09/21/20 02:30 Urine Ascorbic Acid NEGATIVE (NEGATIVE) 09/21/20 02:30 Urine Opiates Screen UNCONFIRMED POSITIVE 09/21/20 02:30 Urine Methadone Screen NEGATIVE 09/21/20 02:30 Ur Barbiturates Screen NEGATIVE 09/21/20 02:30 Ur Phencyclidine Scrn NEGATIVE 09/21/20 02:30 Ur Amphetamines Screen NEGATIVE 09/21/20 02:30 U Benzodiazepines Scrn NEGATIVE 09/21/20 02:30 Urine Cocaine Screen NEGATIVE 09/21/20 02:30 U Marijuana (THC) Screen NEGATIVE 09/21/20 02:30 09/20/20 09/20/20 09/21/20 16:43 22:54 04:27 Troponin I < 0.012 < 0.012 < 0.012 09/21/20 11:28 Troponin I < 0.012 Impressions: Abdomen/Pelvis CTA 09/20/20 00:00 IMPRESSION: No evidence of aneurysm or dissection. No evidence of acute intrathoracic or intra-abdominal infectious/inflammatory process. Chest/Abdomen CTA 09/20/20 16:40 IMPRESSION: No evidence of aneurysm or dissection. No evidence of acute intrathoracic or intra-abdominal infectious/inflammatory process. Plan Time Spent: Greater than 30 Minutes Stroke Is this a Stroke Patient?: No Acute Heart Failure Is this a Heart Failure Patient?: No
== END 2020-09-23 17:30 | disposition home or self-care (01) | DRG 682 ==
LOC: ER 16:27 → EH 19:29 → 4W 21:30
PROVIDERS: ADMIT Family Medicine; ATTEND Family Medicine
DX: N17.9 Acute kidney failure, unspecified (principal); K29.71 Gastritis, unspecified, with bleeding; G93.41 Metabolic encephalopathy; K29.81 Duodenitis with bleeding; K92.1 Melena; I11.0 Hypertensive heart disease with heart failure; I50.9 Heart failure, unspecified; I95.2 Hypotension due to drugs; E11.9 Type 2 diabetes mellitus without complications; E78.00 Pure hypercholesterolemia, unspecified; E87.5 Hyperkalemia; F41.9 Anxiety disorder, unspecified; K21.9 Gastro-esophageal reflux disease without esophagitis; N40.0 Benign prostatic hyperplasia without lower urinary tract symptoms; E66.01 Morbid (severe) obesity due to excess calories; J45.909 Unspecified asthma, uncomplicated; M19.90 Unspecified osteoarthritis, unspecified site; F32.9 Major depressive disorder, single episode, unspecified; Z79.84 Long term (current) use of oral hypoglycemic drugs; Z79.82 Long term (current) use of aspirin; Z79.899 Other long term (current) drug therapy; Z91.14 Patient's other noncompliance with medication regimen; Z82.49 Family history of ischemic heart disease and other diseases of the circulatory system; Z88.0 Allergy status to penicillin
CPT/HCPCS: 36415; 71275; 74174; 80048; 80053; 80307; 81001; 82550; 82962; 83735; 84132; 84484; 85025; 85027; 85610; 85730; 93005; 93010; 96361; 96374; 96375; 99285; C9113; J1644; J1815; J3490; J7030

== ENCOUNTER 2020-11-19 09:19 | Day surgery (SDC) | payer OTHER, MEDICARE ==
[2020-11-19 10:44] VITALS: BP 127/73
--- NOTE | 2020-11-19 17:47 | Operative Report ---
Operative Report DATE OF SURGERY: 11/19/20 Operative Report: The risks benefits and alternatives of the procedure explained to the patient in detail and informed consent is obtained.A GIF Olympus video scope was inserted into the patient's mouth and hypopharynx, the esophagus is identified intubated and insufflated ,the scope was then advanced through the esophagus stomach and duodenum ,retroflexion maneuver is done the esophagus stomach and first and second portions of the duodenum examined PREOPERATIVE DIAGNOSIS: Follow-up duodenal ulcer POSTOPERATIVE DIAGNOSIS: Healed duodenal ulcer. Gastritis status post biopsy without Helicobacter pylori OPERATION: EGD with biopsy SURGEON: SINAI GONZALEZ ANESTHESIA: LMAC TISSUE REMOVED OR ALTERED: As noted above. COMPLICATIONS: None. ESTIMATED BLOOD LOSS: None. INTRAOPERATIVE FINDINGS: As noted above. PROCEDURE: Patient tolerated procedure well. No immediate postprocedure complications are noted. Patient is discharged in good condition. Discharge date 11/19/2020. Discharge diet: Regular. Discharge activity: Regular. 2 to 3-week follow-up to discuss findings. Patient is instructed call the office or proceed to the emergency room should there be any further problems or questions. Wait on the pathology.
== END 2020-11-19 11:00 | disposition home or self-care (01) ==
LOC: OROUT 09:19
PROVIDERS: ATTEND Internal Medicine Gastroenterology
DX: K29.50 Unspecified chronic gastritis without bleeding (principal); Z87.19 Personal history of other diseases of the digestive system; G47.33 Obstructive sleep apnea (adult) (pediatric); I10 Essential (primary) hypertension; Z79.899 Other long term (current) drug therapy; Z88.0 Allergy status to penicillin; E11.9 Type 2 diabetes mellitus without complications; Z79.84 Long term (current) use of oral hypoglycemic drugs; K21.9 Gastro-esophageal reflux disease without esophagitis; K57.90 Diverticulosis of intestine, part unspecified, without perforation or abscess without bleeding
CPT/HCPCS: 43239; 82962; 88342 ×2; 88305 ×2; 00731; J2704; 731